=== PATIENT | female | born 1985 | race Caucasian/White ===

== ENCOUNTER → 2023-08-17 06:51 | Outpatient (REF) | payer BC, SELFPAY | LOC: RAD 06:51 | PROVIDERS: ATTENDING PHYSICIAN Internal Medicine | DX: G50.1 Atypical facial pain (principal) | CPT/HCPCS: 70450 ==

== ENCOUNTER 2023-08-25 18:45 | Inpatient (IN) | payer BC, SELFPAY ==
[2023-08-25] VITALS (15 sets, daily range): BP systolic 85–141; BP diastolic 49–109; BMI 18.6
[2023-08-25] MEDS: NSS 1000 IV ×3 (11:08→21:07)
[2023-08-25 11:12] LABS: % Basophils 0.2 % (0-2); % Eosinophils 0.1 % (0-6); % Immature Granulocytes 0.6 % (0-0.5); % Lymphocytes 8.7 % (20.5-51.1); % Monocytes 6.3 % (1.7-9.3); % Neutrophils 84.1 % (42.2-75.2); Absolute Immature Granulocytes 0.1 10^3/uL (0-0.05); Absolute Lymphocytes 1.5 10^3/uL (1.2-3.4); Absolute Monocytes 1.1 10^3/uL (0.1-0.6); Absolute Neutrophils 14.7 10^3/uL (1.4-6.5); Hematocrit 36.6 % (37.0-47.0); Hemoglobin 12.4 g/dL (12.0-16.0); Mean Corp Hgb Conc. 33.9 g/dL (33.0-37.0); Mean Corpuscular Hgb 29.7 pg (27.0-31.0); Mean Corpuscular Volume 87.8 fL (81.0-99.0); Mean Platelet Volume 9.5 fL (7.4-10.4); Nucleated Red Blood Cells % 0 %; Platelet Count 204 10^3/uL (130-400); Red Blood Cell Count 4.17 10^6/uL (4.20-5.40); White Blood Cell Count 17.5 10^3/uL (4.8-10.8)
[2023-08-25 11:22] LABS: ALT (SGPT) 15 U/L (0-35); AST (SGOT) 23 U/L (14-36); Albumin 4.5 g/dl (3.5-5.0); Alkaline Phosphatase 63 U/L (38-126); Blood Urea Nitrogen 12 mg/dl (7-17); Calcium 9.5 mg/dl (8.4-10.2); Carbon Dioxide 21 mmol/L (22-30); Chloride 102 mmol/L (98-107); Glucose 105 mg/dl (70-99); Potassium 3.8 mmol/L (3.5-5.1); Sodium 132 mmol/L (135-145); Total Bilirubin 0.6 mg/dl (0.2-1.3); Total Protein 7.4 g/dl (6.3-8.2); Urine Albumin Negative (Neg - Trace); Urine Bilirubin Negative (Negative); Urine Character Clear (Clear); Urine Color Yellow; Urine Glucose Negative (Negative); Urine Ketone Negative (Negative); Urine Leukocyte Trace (Negative); Urine Nitrite Negative (Negative); Urine Occult Blood Negative (Negative); Urine Specific Gravity 1.005 (<1.030); Urine Urobilinogen Negative (Neg - 1+); eGFR > 60.00
[2023-08-25 11:28] LABS: HCG, Urine Qualitative Screen Negative
[2023-08-25 12:00] LABS: Urine Mucus Few; Urine Squamous Cell 21-25 /LPF (Few)
[2023-08-25 12:01] LABS: Urine Amorphous Seen; Urine Bacteria Few (Negative); Urine Red Blood Cell 0-2 /HPF (0-2)
[2023-08-25] MEDS: ROCEPHIN 1000 MG IV (13:23)
[2023-08-25] MEDS: TORADOL 15 MG IV ×2 (13:33→18:14)
--- NOTE | 2023-08-25 13:39 | ED.GENMED ---
History of Present Illness
<Paolo Schuster Jr., PA-C - Last Filed: 08/25/23 18:10>
General
Chief Complaint: Back Pain
Source: patient
Exam Limitations: none
Time Seen by Provider: 08/25/23 10:33
Nursing documentation reviewed up to this point in time: agreed with
Travel History
Have you had any contact with someone who has COVID-19?: No
Do you have any symptoms of coronavirus? Fever > 100 degrees, chills, cough, shortness of breath, sore throat, loss of taste or smell, muscle aches, or headache?: No
History of Present Illness
History of Present Illness:
38-year-old female with recent diagnosis of UTI on Bactrim for the last 3 days presenting to the emergency department today with concerns of subjective fever and left-sided flank pain worsening over the past day. Denies chest pain shortness of
breath or vomiting. Ongoing suprapubic discomfort. Also has ongoing frequency urgency at dysuria.
Past History
<Paolo Schuster Jr., PA-C - Last Filed: 08/25/23 18:10>
Past History
ED Past Medical History: Other (Possible rheumatoid arthritis and fibromyalgia)
ED Past Surgical History: Other (Nose surgery, breast reduction)
Social History
Tobacco: Non-smoker
Personal:
Living: with family
Employment: Employed
Family History
Family History: Other (Mother has rheumatoid arthritis)
Review of Systems
<CLAUDETTE Chanel Jr. Last Filed: 08/25/23 18:10>
Review of Systems
Allergies reviewed?: Yes
All Other Systems: ROS reviewed and negative except as documented in HPI and ROS
Phy Exam
<CLAUDETTE Chanel Jr. Last Filed: 08/25/23 18:10>
Physical Exam
Physical Exam:
GENERAL: Alert , in no apparent distress
EYE: pupils equal and reactive
NECK: Supple, no significant adenopathy.
ENT: o/p clr, mmm.
CARDIAC: Regular rate and rhythm .
LUNGS: Clear breath sounds bilaterally, no acute respiratory distress, no wheezes/rales/rhonchi
ABDOMEN: Tenderness palpation to the suprapubic region as well as the left flank otherwise soft benign abdomen
NEUROLOGICAL: Alert and oriented, no focal neuro deficits
SKIN: Warm and dry, skin intact.
MUSCULOSKELETAL: No edema, well perfused.
PSYCH: Normal and appropriate interaction.
Course
<Paolo Schuster Jr., PA-C - Last Filed: 08/25/23 18:10>
Orders/Labs/Results
Orders:
Orders
08/25/23 09:28
Test Result ONCE
08/25/23 10:52
Complete Blood Count/With Diff Urgent
Comprehensive Metabolic Panel Urgent
, Urine Qualitative Screen [HCG, Urine Qualitative Screen] Urgent
Date Specimen was Collected: 08/25/23
Time Specimen was Collected: 09:28
Urinalysis Reflex To Culture Urgent
Date Specimen was Collected: 08/25/23
Time Specimen was Collected: 09:28
Urine Microscopic Reflex Cult Urgent
08/25/23 11:03
CT Abd/pel Without Iv Or Oral Urgent
Comment:
Reason For Exam: left flank pain
08/25/23 11:08
0.9% Sodium Chloride 1000 ml [Nss] 1,000 ml IV BOLUS
08/25/23 13:06
CefTRIAXone [Rocephin] 1,000 mg IV NOW STA
08/25/23 13:31
Ketorolac [Toradol] 15 mg .ROUTE .STK-MED ONE
08/25/23 13:32
Ketorolac [Toradol] 15 mg IV NOW STA
08/25/23 14:21
CT Abd/pel W Iv And Oral Contr Urgent
Comment:
Reason For Exam: abd pain back pain
Iohexol [Omnipaque] See Protocol PO NOW STA
08/25/23 14:27
Acetaminophen [Tylenol] 650 mg PO NOW STA
Morphine Sulfate 2 mg IV NOW STA
08/25/23 14:29
Morphine Sulfate 4 mg IV NOW STA
08/25/23 14:41
Influenza A+B Rapid Molecular Urgent
JESSICA Source: Nasal Swab
Specimen Description:
08/25/23 16:46
Lactic Acid Urgent
08/25/23 16:56
0.9% Sodium Chloride 1000 ml [Nss] 1,000 ml IV BOLUS
08/25/23 17:57
EKG [Electrocardiogram (*1)] Urgent
Reason for Study: Bradycardia / Tachycardia
EKG- Treatment ONCE
08/25/23 18:05
Gentamicin Sulfate [Gentamicin] 105 mg 0.9% Sodium Chloride [Nss] 50 ml IV NOW
Abnormal Lab Results
08/25/23 08/25/23
10:52 16:46
WBC 17.5 H 10^3/uL
(4.8-10.8)
RBC 4.17 L 10^6/uL
(4.20-5.40)
Hct 36.6 L %
(37.0-47.0)
Abs Immat Gran (auto) 0.1 H 10^3/uL
(0-0.05)
Absolute Neuts (auto) 14.7 H 10^3/uL
(1.4-6.5)
Absolute Monos (auto) 1.1 H 10^3/uL
(0.1-0.6)
Immature Gran % 0.6 H %
(0-0.5)
Neutrophils % 84.1 H %
(42.2-75.2)
Lymphocytes % 8.7 L %
(20.5-51.1)
Sodium 132 L mmol/L
(135-145)
Carbon Dioxide 21 L mmol/L
(22-30)
Glucose 105 H mg/dl
(70-99)
Lactic Acid 0.6 L mmol/L
(0.7-2.0)
Leukocyte Esterase Rfl Trace A
(Negative)
Urine Bacteria (Reflex) Few A
(Negative)
08/25/23 10:52
08/25/23 10:52
Vital Signs
Initial and Last Documented VS:
Initial Vital Signs
Temp Pulse Resp BP Pulse Ox
98.8 F 113 18 105/66 100
08/25/23 09:24 08/25/23 09:24 08/25/23 09:24 08/25/23 09:24 08/25/23 09:24
Last Documented Vital Signs
Temp Pulse Resp BP Pulse Ox
100.8 F H 48 24 141/109 94
08/25/23 17:46 08/25/23 17:46 08/25/23 17:46 08/25/23 17:46 08/25/23 17:46
Kellenlt;Juan Carlos Ramirez, - Last Filed: 08/25/23 14:49>
Orders/Labs/Results
Orders:
Orders
08/25/23 09:28
Test Result ONCE
08/25/23 10:52
Complete Blood Count/With Diff Urgent
Comprehensive Metabolic Panel Urgent
, Urine Qualitative Screen [HCG, Urine Qualitative Screen] Urgent
Date Specimen was Collected: 08/25/23
Time Specimen was Collected: 09:28
Urinalysis Reflex To Culture Urgent
Date Specimen was Collected: 08/25/23
Time Specimen was Collected: 09:28
Urine Microscopic Reflex Cult Urgent
08/25/23 11:03
CT Abd/pel Without Iv Or Oral Urgent
Comment:
Reason For Exam: left flank pain
08/25/23 11:08
0.9% Sodium Chloride 1000 ml [Nss] 1,000 ml IV BOLUS
08/25/23 13:06
CefTRIAXone [Rocephin] 1,000 mg IV NOW STA
08/25/23 13:31
Ketorolac [Toradol] 15 mg .ROUTE .STK-MED ONE
08/25/23 13:32
Ketorolac [Toradol] 15 mg IV NOW STA
08/25/23 14:21
CT Abd/pel W Iv And Oral Contr Urgent
Comment:
Reason For Exam: abd pain back pain
Iohexol [Omnipaque] See Protocol PO NOW STA
08/25/23 14:27
Acetaminophen [Tylenol] 650 mg PO NOW STA
Morphine Sulfate 2 mg IV NOW STA
08/25/23 14:29
Morphine Sulfate 4 mg IV NOW STA
08/25/23 14:41
Influenza A+B Rapid Molecular Urgent
JESSICA Source: Nasal Swab
Specimen Description:
08/25/23 16:46
Lactic Acid Urgent
08/25/23 16:56
0.9% Sodium Chloride 1000 ml [Nss] 1,000 ml IV BOLUS
08/25/23 17:57
EKG [Electrocardiogram (*1)] Urgent
Reason for Study: Bradycardia / Tachycardia
EKG- Treatment ONCE
08/25/23 18:05
Gentamicin Sulfate [Gentamicin] 105 mg 0.9% Sodium Chloride [Nss] 50 ml IV NOW
Abnormal Lab Results
08/25/23 08/25/23
10:52 16:46
WBC 17.5 H 10^3/uL
(4.8-10.8)
RBC 4.17 L 10^6/uL
(4.20-5.40)
Hct 36.6 L %
(37.0-47.0)
Abs Immat Gran (auto) 0.1 H 10^3/uL
(0-0.05)
Absolute Neuts (auto) 14.7 H 10^3/uL
(1.4-6.5)
Absolute Monos (auto) 1.1 H 10^3/uL
(0.1-0.6)
Immature Gran % 0.6 H %
(0-0.5)
Neutrophils % 84.1 H %
(42.2-75.2)
Lymphocytes % 8.7 L %
(20.5-51.1)
Sodium 132 L mmol/L
(135-145)
Carbon Dioxide 21 L mmol/L
(22-30)
Glucose 105 H mg/dl
(70-99)
Lactic Acid 0.6 L mmol/L
(0.7-2.0)
Leukocyte Esterase Rfl Trace A
(Negative)
Urine Bacteria (Reflex) Few A
(Negative)
08/25/23 10:52
08/25/23 10:52
Vital Signs
Initial and Last Documented VS:
Initial Vital Signs
Temp Pulse Resp BP Pulse Ox
98.8 F 113 18 105/66 100
08/25/23 09:24 08/25/23 09:24 08/25/23 09:24 08/25/23 09:24 08/25/23 09:24
Last Documented Vital Signs
Temp Pulse Resp BP Pulse Ox
100.8 F H 48 24 141/109 94
08/25/23 17:46 08/25/23 17:46 08/25/23 17:46 08/25/23 17:46 08/25/23 17:46
<Paolo Schuster Jr., PA-C - Last Filed: 08/25/23 18:10>
MDM/Problems Addressed
MDM/Problems Addressed:
38-year-old female presenting to the emergency department today with concerns of potentially worsening UTI recently diagnosed with a UTI on for 3 days now left flank pain. Upon arrival afebrile but tachycardic was given fluids with improving heart
rate however did develop a fever while here. White count was found to be 17.[address] scan without emergent findings however the patient had ongoing tachycardia chills. Fever worsened despite receiving Toradol and Tylenol.
Considering the CT scan with contrast was then ordered which did show pyelonephritis. Plan to admit for further IV antibiotics for pyelonephritis.
<Paolo Schuster Jr., PA-C - Last Filed: 08/25/23 18:10>
*Critical Care Note
Total Time (30-74mins, 75-104mins- exclusive of procedures): Not Applicable
ED Attending Note
<Paolo Schuster Jr., PA-C - Last Filed: 08/25/23 18:10>
-
Portions of this chart may have been created with voice recognition software.� Occasional wrong word or��sound alike� substitutions may have occurred due to the inherent limitations of voice recognition software.
<Juan Carlos Ramirez DO - Last Filed: 08/25/23 14:49>
ED Attending Note
Patient seen and examined by attending physician: Yes
I performed the substantive portion of visit, reviewed & personally made and approve the management plan that is documented in note by myself or ODALIS.: Yes
ED Attending Note:
I agree with Ed's note,
Patient presents complaining of flank pain and abdominal pain. She has had a fever. Symptoms began 3 or 4 days ago. She was started on an antibiotic but has not felt any better.
General: Awake, Alert, Oriented X3. No acute distress, very thin
Vitals: Febrile
Head: Atraumatic
Eyes: Pupils equal, EOMI
Throat: Airway intact, no exudates
Neck: Trachea midline
Lungs: Clear and equal b/l
Heart: Regular rate, no murmurs
Abd: Soft, tender to palpation lower abdomen, No pulsatile mass
Back: Left CVA tenderness to percussion
Neuro: Nonfocal
Skin: Warm, dry, no rash
Extremities: pulses equal b/l, no edema
Initial workup shows white count of 17.5. Urinalysis is essentially negative. There is a large number of squamous epithelial cells making the quality of the specimen suspect. CT was performed without IV and p.o. contrast looking primarily for
kidney stone. There is no obvious stone and certainly no hydro noted. Patient is very very thin with low intra-abdominal fat so radiologist notes it is difficult to make any conclusions as far as other intra-abdominal pathology. That the patient
is on antibiotics and it is possible she has a partially treated UTI I would think her symptoms would be improving and they are not. Given the amount of abdominal discomfort she has a concern there could be an intra-abdominal process that is not
evident on the noncontrast CAT scan. First we will check a flu test if this is negative we will start the process for repeat CAT scan with IV and oral contrast. Given her use of Humira she may have a component of immunosuppression. Patient's
also notes she has been taking Mounjaro no due to a prediabetic state. Patient is extremely thin and normal coaches not taking this for weight issues. I am not familiar with using Mounjaro now in a prediabetic state.
Discharge Plan
Departure
Patient Disposition: Admit
Date of Disposition: 08/25/23
Time of Disposition: 18:09
Admit to: Med/Surg
Admit to doctor: Soren
Presentation/result/management discussed w/ accepting MD/DO: Hospitalist
Condition: Good
Covid-19: Not Applicable
Discharge Problem:
Pyelonephritis
Prescriptions:
No Action
loratadine 10 MG tablet
10 mg PO DAILY
citalopram 20 MG tablet
20 mg PO DAILY
acetaminophen 325 MG tablet
650 mg PO Q4HPRN PRN (Reason: mild pain) 0RF
ibuprofen 600 MG tablet
600 mg PO Q4HPRN PRN (Reason: moderate pain/cramps) 0RF
Referrals:
Marlene Sanchez, [Family Provider] -
Interventions
Interventions:
*Risk Screen - Suicide Last Done: 08/25/23 11:05
*General Assessment Last Done: 08/25/23 11:05
*Neglect/Abuse Screening Last Done: 08/25/23 11:05
*ED COVID-19 Vaccine History Last Done: 08/25/23 14:18
ED-Female Genitourinary Assessment Last Done: 08/25/23 11:05
ED-Musculoskeletal Assessment Last Done: 08/25/23 11:05
Discharge Date and Time
Print Language: BULGARIAN
[2023-08-25] MEDS: TYLENOL 650 MG PO ×2 (14:36→20:36)
[2023-08-25] MEDS: MORPHINE SULFATE 4 MG IV (14:36)
[2023-08-25] MEDS: OMNIPAQUE 50 ML PO (14:37)
[2023-08-25 17:11] LABS: Lactic Acid 0.6 mmol/L (0.7-2.0)
--- NOTE | 2023-08-25 18:31 | HPS.HSE ---
Family Physician
-
Family Physician: Marlene Sanchez
Chief Complaint
-
Fever, chills, left-sided flank pain
History of Present Illness
38-year-old female diagnosed with urinary tract infection 3 days ago and started Bactrim on Tuesday. Had a long drive back home from [place] and was trying to avoid stopping and had to keep her urine held which may have triggered her UTI.
Has been compliant with Bactrim for the past few days but symptoms of flank pain and chills worsened and she presented to the emergency room for evaluation today.
Denies frequent UTIs. Denies history of pyelonephritis.
Medical History
Past Medical History
Past Medical History: Reports Other
Additional Past Medical History:
Rheumatoid arthritis
Fibromyalgia
Past Surgical History: Reports Other
Additional Past Surgical History:
Nose surgery
Breast reduction
Social History
Tobacco: Non-smoker
Alcohol: None
Drug: None
Personal:
Living: With Family
Family History
Family History: Not pertinent
Allergies / Home Medications
Allergies reflects when Allergies were last updated in [facility].
Home Medications with original date entered in [facility]
Allergy/Medication List:
Allergies
Allergy/AdvReac Type Severity Reaction Status Date / Time
amoxicillin [From Augmentin] Allergy Mild Rash Verified 08/25/23 09:23
clavulanic acid Allergy Mild Rash Verified 08/25/23 09:23
[From Augmentin]
cefuroxime [From Ceftin] Allergy Unknown Verified 08/25/23 09:23
tramadol Allergy facial Verified 08/25/23 09:23
numb and
swelling
Home Medications
loratadine 10 mg tablet 10 mg PO DAILY Allergies 10/18/17
adalimumab 40 mg/0.4 mL subcutaneous pen kit (Humira(CF) Pen) 40 mg SC Q2W 08/25/23
citalopram 40 mg tablet 40 mg PO HS 08/25/23
gabapentin 300 mg capsule 300 mg PO TID PRN nerve pain 08/25/23
hydroxychloroquine 200 mg tablet 200 mg PO BID 08/25/23
lidocaine-prilocaine 2.5 %-2.5 % topical cream 1 applic topical QID PRN tmj pain 08/25/23
therapeutic multivitamin 1 tab PO DAILY 08/25/23
tirzepatide 2.5 mg/0.5 mL subcutaneous pen injector (Mounjaro) 2.5 mg SC WE 08/25/23
Review of Systems
-
History Source: Patient
A 12 point ROS was completed and negative except as noted: Yes
Physical Exam
Vital Signs
Vital Signs
Temp Pulse Resp BP Pulse Ox
100.8 F H 48 24 141/109 94
08/25/23 17:46 08/25/23 17:46 08/25/23 17:46 08/25/23 17:46 08/25/23 17:46
Physical Exam
General: Well Developed, Well Nourished, Appears in Distress and Chills
HEENT: NormoCephalic, Anicteric and Moist mucous membranes
Respiratory: Clear
Cardiac: S1/S2 and Regular Rhythm
Breast: Deferred by me
GI: Soft, Non Tender and Non Distended
Genito-urinary: Costovertebral angle tend (Left-sided)
Musculoskeletal: No Clubbing, No Cyanosis and No Edema
Skin: Warm and Dry
Neuro: AO x 3
Hematologic/Lymphatic: No Lymphadenopathy
Psych: Calm
Laboratory Results
-
08/25/23 10:52
08/25/23 10:52
Laboratory Results
Lactic Acid 0.6 mmol/L (0.7-2.0) L 08/25/23 16:46
Total Bilirubin 0.6 mg/dl (0.2-1.3) 08/25/23 10:52
AST 23 U/L (14-36) 08/25/23 10:52
ALT 15 U/L (0-35) 08/25/23 10:52
Alkaline Phosphatase 63 U/L (38-126) 08/25/23 10:52
Impression/Plan
-
Septic shock due to left-sided pyelonephritis -Transient hypotension resolved with IV fluids. Failure of outpatient antibiotics. Immunosuppressed, on Humira and hydroxychloroquine for rheumatoid arthritis. Admit to IMU. Continue IV fluids.
Broad-spectrum antibiotics. I asked the emergency room to send cultures. CT abdomen pelvis results noted. On contrast was administered, no renal stones were noted.
Lactic acid normal.
Hyponatremia -due to sepsis, acute illness. Citalopram can also contribute. Reassess after normal saline overnight.
Rheumatoid arthritis -stable.
History of MRSA skin infections
Fibromyalgia
Full code
[2023-08-25] MEDS: GENTAMICIN 50 IV (19:03)
[2023-08-25] MEDS: PLAQUENIL PO (21:08)
[2023-08-25] MEDS: CELEXA PO (21:08)
[2023-08-25] MEDS: COMPAZINE 10 MG IV (21:09)
[2023-08-25] MEDS: MAXIPIME 2000 MG IV (21:09)
[2023-08-25] MEDS: STERILE WATER FOR INJECTION 10 ML IV (21:10)
--- NOTE | 2023-08-25 22:19 | W.PN.UPDATE ---
Update Note
Progress Note Update
Nursing reported patient with sustained tachycardia, febrile and patient stated to nurse, 'I feel I am going to .' At bedside to assess and patient is in bed and presents anxious, voices that she feels like her body is 'on fire. Burning from the
inside out.'
Plan:
- EKG - prolonged QTc 599 was 413 at admission
- Hold Compazine, repeat EKG in morning to monitor QTc
- Cooling blanket - acetaminophen was ineffective for fever
- STAT - CBC w/diff, BMP, Lactic (no significant findings)
- STAT Blood Cx - in attendings note mentions 'ED to draw and send,' none drawn
[2023-08-25 22:46] LABS: Hematocrit 29.2 % (37.0-47.0); Mean Corp Hgb Conc. 34.2 g/dL (33.0-37.0); Mean Corpuscular Hgb 29.6 pg (27.0-31.0); Mean Corpuscular Volume 86.4 fL (81.0-99.0); Red Blood Cell Count 3.38 10^6/uL (4.20-5.40); Red Cell Dist. Width 13.9 % (11.5-14.5); White Blood Cell Count 10.5 10^3/uL (4.8-10.8)
[2023-08-25 22:58] LABS: Blood Urea Nitrogen 8 mg/dl (7-17); Calcium 8.2 mg/dl (8.4-10.2); Carbon Dioxide 18 mmol/L (22-30); Chloride 104 mmol/L (98-107); Estimated Creatinine Clearance 75 ml/min; Glucose 103 mg/dl (70-99); Potassium 3.7 mmol/L (3.5-5.1); Sodium 131 mmol/L (135-145); eGFR > 60.00
[2023-08-25 22:59] LABS: Mean Platelet Volume 9.9 fL (7.4-10.4); Platelet Count 131 10^3/uL (130-400)
--- NOTE | 2023-08-25 23:00 | PTCARENOTE ---
Pt received from ED.Pt c/o pain and nausea dose of ordered Toradol and Compazine administered, ED EKG reviewed for prolonged QTc. Pt with temp of 102.9 with chills, tachycardia from 140-160's, muscles aches, and overall restlessness. PT given oral
dose of Tylenol. Pts temperature and symptoms persist. BASE CLOTH INSPECTOR notified. EKG ordered and preformed. Porlonged QTc noted, BASE CLOTH INSPECTOR notified, AM EKG order placed Compazine order placed on hold, labs ordered .BASE CLOTH INSPECTOR placed order for cooling blanket with goal
temp of 100.4.
[2023-08-26] VITALS (28 sets, daily range): BP systolic 75–114; BP diastolic 56–83; BMI 18.7
[2023-08-26] MEDS: TORADOL 30 MG IV ×4 (00:07→19:56)
[2023-08-26] MEDS: CELEXA PO (01:52)
[2023-08-26] MEDS: PLAQUENIL PO (01:53)
[2023-08-26] MEDS: TYLENOL 650 MG PO ×3 (02:48→16:15)
--- NOTE | 2023-08-26 04:41 | PTCARENOTE ---
Pt placed back on cooling blanket for fever of 101.5. Pt assessed being able to sleep. Pt with HR of 130-140's. Pt receiving ordered fluids @ 120/ml/hr. Pt AAO, making needs known. Pt voiding frequently throughout the night. Pt currently on her
menses, Pt provided with pads. Call de souza in reach, see nursing shift report for full head to toe.
[2023-08-26] MEDS: MORPHINE SULFATE 4 MG IV (05:52)
[2023-08-26 06:01] LABS: % Basophils 0.2 % (0-2); % Immature Granulocytes 0.7 % (0-0.5); % Lymphocytes 7.4 % (20.5-51.1); % Monocytes 7.3 % (1.7-9.3); % Neutrophils 84.4 % (42.2-75.2); Absolute Immature Granulocytes 0.1 10^3/uL (0-0.05); Absolute Lymphocytes 0.8 10^3/uL (1.2-3.4); Absolute Monocytes 0.8 10^3/uL (0.1-0.6); Absolute Neutrophils 8.7 10^3/uL (1.4-6.5); Hemoglobin 9.8 g/dL (12.0-16.0); Mean Corp Hgb Conc. 33.8 g/dL (33.0-37.0); Mean Corpuscular Hgb 29.9 pg (27.0-31.0); Mean Corpuscular Volume 88.4 fL (81.0-99.0); Mean Platelet Volume 10.2 fL (7.4-10.4); Nucleated Red Blood Cells % 0 %; Platelet Count 132 10^3/uL (130-400); Red Blood Cell Count 3.28 10^6/uL (4.20-5.40); White Blood Cell Count 10.4 10^3/uL (4.8-10.8)
[2023-08-26 06:31] LABS: Blood Urea Nitrogen 7 mg/dl (7-17); Calcium 8.1 mg/dl (8.4-10.2); Carbon Dioxide 18 mmol/L (22-30); Chloride 109 mmol/L (98-107); Estimated Creatinine Clearance 87 ml/min; Glucose 106 mg/dl (70-99); Sodium 133 mmol/L (135-145); eGFR > 60.00
[2023-08-26] MEDS: NSS 1000 IV ×3 (07:06→16:11)
[2023-08-26] MEDS: STERILE WATER FOR INJECTION 10 ML IV ×2 (07:34→19:59)
[2023-08-26] MEDS: CLARITIN 10 MG PO (07:35)
[2023-08-26] MEDS: PLAQUENIL 200 MG PO ×2 (07:35→19:54)
[2023-08-26] MEDS: THERAGRAN 1 TABLET PO (07:35)
[2023-08-26] MEDS: MAXIPIME 2000 MG IV ×2 (07:35→19:58)
[2023-08-26 08:01] LABS: Magnesium 1.7 mg/dl (1.6-2.3)
--- NOTE | 2023-08-26 09:11 | W.PN.HOSP.TC ---
Today's Communication/Plan
-
Continue IV antibiotics
Continue supportive care
Assessment / Plan
Assessment / Plan
Gen-AAOx3, NAD
HEENT-NC, AT, anicteric, clear oral mm
Neck-supple
CV-reg, no M, +S1/S2
Lungs-clear B/L
Abd-soft, NT, ND
Ext-no edema
Musculoskeletal-no cyanosis, clubbing, left flank tenderness
Skin-warm and dry
Neuro-grossly non-focal
Psych-calm, cooperative
Septic shock due to left-sided pyelonephritis -blood pressure improved overall. Did not require vasopressors. Currently in IMU. Unclear why cultures were never sent emergency room, despite my requests with the ER staff.
Continue antibiotics. White blood cell count improved. Clinically looks nontoxic and much better than yesterday. At this point, cultures may or may not be helpful. Fevers noted. May take a few more days for fevers to resolve. CT abdomen pelvis
did not show renal abscess.
Will resend urinalysis and urine culture as noted orange-colored urine.
Discontinue further Compazine given potential jitteriness as a side effect. Use Zofran as needed. QT interval improved.
Hyponatremia -due to sepsis, acute illness. Citalopram can also contribute. Sodium 133 today. Mild fluid restriction.
Rheumatoid arthritis -stable.
Acute anemia -normocytic. Hemoglobin was normal on admission. Suspect hemodilution due to IV fluid administration. Doubt bleeding. Monitor for now.
History of MRSA skin infections
Fibromyalgia
Full code
Anticipated Discharge: > 48 hours
Subjective/Interval History
-
Date of Service: August 26, 2023
Patient seen and examined. Looks and feels better. Still with left flank pain but less than yesterday. No nausea currently.
Objective Data
-
Labs:
Laboratory Results
08/25/23 08/26/23
22:32 05:35
WBC 10.5 10.4
Hgb 10.0 L 9.8 L
Hct 29.2 L 29.0 L
Plt Count 131 D 132
Sodium 131 L 133 L
Potassium 3.7 4.0
Chloride 104 109 H
Carbon Dioxide 18 L 18 L
BUN 8 7
Creatinine 0.8 0.7
Glucose 103 H 106 H
Calcium 8.2 L 8.1 L
Vital Signs:
Vital Signs
Temp Pulse Resp BP Pulse Ox
100.4 F H 105 23 98/67 98
08/26/23 09:00 08/26/23 06:00 08/26/23 06:00 08/26/23 06:00 08/26/23 00:44
I&O
08/25/23 08/26/23 08/27/23
06:59 06:59 06:59
Intake Total 480 / 480 1200 / 1200
Balance 480 / 480 1200 / 1200
Review of Systems
-
History Source: Patient
All other systems: Reviewed and negative
[2023-08-26] MEDS: ZOFRAN 4 MG IV ×2 (10:15→19:55)
--- NOTE | 2023-08-26 10:17 | CM ---
CM following re: discharge planning.
Reviewed pt's chart, m,et with pt. pt's spouse and pt's mother at bedside.
Pt is a 38 year old female, admitted with primary dx of Septic shock due to left-sided pyelonephritis.
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
PCP: Marlene Sanchez
Pharmacy: [facility]
D/C plan: home with anticipated no needs. to transport at discharge.
CM will follow with discharge plan updates as hospitalization progresses
[2023-08-26 12:34] LABS: Urine Albumin Negative (Neg - Trace); Urine Bilirubin Negative (Negative); Urine Character Clear (Clear); Urine Color Yellow; Urine Glucose Negative (Negative); Urine Ketone 1+ (Negative); Urine Leukocyte Trace (Negative); Urine Nitrite Negative (Negative); Urine Occult Blood 4+ (Negative); Urine Urobilinogen Negative (Neg - 1+)
[2023-08-26] MEDS: NSS 500 IV (12:39)
[2023-08-26] MEDS: ProAmatine 5 MG PO (12:39)
[2023-08-26 15:03] LABS: Urine Mucus Few; Urine Squamous Cell 26-30 /LPF (Few)
[2023-08-26 15:04] LABS: Urine Amorphous Seen
[2023-08-26 15:05] LABS: Urine Red Blood Cell 30-40 /HPF (0-2)
[2023-08-26] MEDS: LOVENOX 30 MG SC (17:20)
--- NOTE | 2023-08-26 17:44 | PTCARENOTE ---
Rec'd pt this AM. Pt with fevers throughout most of the day. T Max 102.9 in AM. Remains on cooling blanket. Pain relieved with Toredol and nausea improved with Zofran. Rigors present when febrile. Pt complained of pain in feet from Raunauds when on
cooling blanket. Socks placed on feet and blanket over bottom of cooling blanket as well. IV fluids infusing as ordered. ST on tele. Pt with some hypotension. 500ml bolus NSS given plus midodrine PRN ordered with good effect. Pt encouraged to drink
fluids as well. family at bedside.
[2023-08-26] MEDS: CELEXA 40 MG PO (19:54)
--- NOTE | 2023-08-26 20:00 | PTCARENOTE ---
Addendum entered by Krys Rivera RN 08/26/23 21:06:
Pt with nausea. Pt reached zofran recently previous to the current nausea. Pts temp declining, currently 100.8. Pt requests Tums. EDUCATIONAL ASSISTANT notified.
Original Note:
Pt received from previous shift. Pts fever returns, of 101.9. Pt placed back on cooling blanket. Pt given ordered toradol, zofran. Pt remains AAO, exhibits slight anxiety. HR remains in the 100-110 range.
[2023-08-26] MEDS: TUMS 1 TABLET PO (21:26)
[2023-08-27] VITALS (19 sets, daily range): BP systolic 92–117; BP diastolic 63–97
[2023-08-27] MEDS: TYLENOL 650 MG PO ×2 (00:23→08:36)
[2023-08-27] MEDS: ZOFRAN 4 MG IV (02:03)
[2023-08-27] MEDS: TORADOL 30 MG IV ×3 (02:05→20:52)
[2023-08-27] MEDS: THERAGRAN 1 TABLET PO (08:38)
[2023-08-27] MEDS: STERILE WATER FOR INJECTION 10 ML IV ×2 (08:38→20:36)
[2023-08-27] MEDS: MAXIPIME 2000 MG IV ×2 (08:38→20:35)
[2023-08-27] MEDS: PLAQUENIL 200 MG PO ×2 (08:38→20:35)
[2023-08-27] MEDS: CLARITIN 10 MG PO (08:38)
--- NOTE | 2023-08-27 08:57 | W.PN.HOSP.TC ---
Today's Communication/Plan
-
Bowel regimen
Ambulate
Continue antibiotics
Assessment / Plan
Assessment / Plan
Gen-AAOx3, NAD
HEENT-NC, AT, anicteric, clear oral mm
Neck-supple
CV-reg, no M, +S1/S2
Lungs-clear B/L
Abd-soft, NT, ND
Ext-no edema
Musculoskeletal-no cyanosis, clubbing, left flank tenderness
Skin-warm and dry
Neuro-grossly non-focal
Psych-calm, cooperative
Septic shock due to left-sided pyelonephritis -blood pressure improved overall. Did not require vasopressors. Currently in IMU. Unclear why cultures were never sent emergency room, despite my requests with the ER staff.
Continue antibiotics. White blood cell count improved. Clinically looks nontoxic and much better than yesterday. At this point, cultures may or may not be helpful. Fevers noted. May take a few more days for fevers to resolve. CT abdomen pelvis
did not show renal abscess.
Unfortunately no good culture data so far. She received Bactrim prior to admission prescribed by PCP, culture not sent at that time either.
Blood cultures negative so far. Urine culture pending.
Constipation -order bowel regimen. Encourage ambulation.
Hyponatremia -due to sepsis, acute illness. Citalopram can also contribute. Sodium 133 today. Mild fluid restriction.
Rheumatoid arthritis -stable.
Acute anemia -normocytic. Hemoglobin was normal on admission. Suspect hemodilution due to IV fluid administration. Doubt bleeding. Monitor for now.
History of MRSA skin infections
Fibromyalgia
Full code
Anticipated Discharge: 24 - 48 hours
Subjective/Interval History
-
Date of Service: August 27, 2023
Patient seen and examined. Complaining of constipation, stomach pain.
Objective Data
-
Labs:
Laboratory Results
08/27/23
06:00
WBC Pending
Hgb Pending
Hct Pending
Plt Count Pending
Sodium Pending
Potassium Pending
Chloride Pending
Carbon Dioxide Pending
BUN Pending
Creatinine Pending
Glucose Pending
Calcium Pending
Vital Signs:
Vital Signs
Temp Pulse Resp BP Pulse Ox
99.8 F 85 17 105/77 100
08/27/23 03:37 08/27/23 06:00 08/27/23 06:00 08/27/23 06:00 08/26/23 20:00
I&O
08/26/23 08/27/23 08/28/23
06:59 06:59 06:59
Intake Total 480 / 480 2160 / 2160
Output Total 125 / 125
Balance 480 / 480 2034 / 2034
Review of Systems
-
History Source: Patient
All other systems: Reviewed and negative
[2023-08-27] MEDS: DULCOLAX 10 MG PO (10:05)
[2023-08-27] MEDS: MIRALAX 17 GRAMS PO (10:06)
[2023-08-27] MEDS: COLACE 100 MG PO ×2 (10:06→20:36)
[2023-08-27] MEDS: NSS 1000 IV (10:20)
[2023-08-27 13:34] LABS: % Basophils 0.3 % (0-2); % Eosinophils 0.3 % (0-6); % Immature Granulocytes 0.3 % (0-0.5); % Lymphocytes 21.1 % (20.5-51.1); % Monocytes 13.4 % (1.7-9.3); % Neutrophils 64.6 % (42.2-75.2); Absolute Lymphocytes 1.3 10^3/uL (1.2-3.4); Absolute Monocytes 0.8 10^3/uL (0.1-0.6); Hematocrit 29.4 % (37.0-47.0); Hemoglobin 10.1 g/dL (12.0-16.0); Mean Corp Hgb Conc. 34.4 g/dL (33.0-37.0); Mean Corpuscular Hgb 29.5 pg (27.0-31.0); Mean Platelet Volume 10.2 fL (7.4-10.4); Nucleated Red Blood Cells % 0 %; Platelet Count 160 10^3/uL (130-400); Red Blood Cell Count 3.42 10^6/uL (4.20-5.40); Red Cell Dist. Width 14.1 % (11.5-14.5); White Blood Cell Count 6.1 10^3/uL (4.8-10.8)
[2023-08-27 13:53] LABS: Blood Urea Nitrogen 7 mg/dl (7-17); Carbon Dioxide 21 mmol/L (22-30); Chloride 107 mmol/L (98-107); Estimated Creatinine Clearance 101 ml/min; Glucose 105 mg/dl (70-99); Potassium 3.8 mmol/L (3.5-5.1); Sodium 135 mmol/L (135-145); eGFR > 60.00
[2023-08-27] MEDS: LOVENOX 30 MG SC (16:54)
[2023-08-27] MEDS: MORPHINE SULFATE 4 MG IV (17:10)
--- NOTE | 2023-08-27 20:31 | RESPNOTE ---
PT is ordered for BIPAP 04/26 for HS use and PRN use. PT has significant breakdown on the bridge of the nose and unable to use any mask other than an [id number] mask. 2 different [id number] masks were tested on the PT and she said both were
blowing in her eyes, despite many adjustments. PT was asked whether she would like to wear what we have available, or just wear the 4 L nasal cannula, she opted for just the nasal O2. BIPAP remains on [facility]BY at the and says that she hopes to have
a family member bring in her home mask for use with our BIPAP.
[2023-08-27] MEDS: CELEXA 40 MG PO (20:38)
--- NOTE | 2023-08-27 21:51 | PTCARENOTE ---
Received pt at start of shift, aaox3, pleasant. Still having sharp pain in upper abdomen, toradol given. Remains on RA, NSR. at bedside. Plan of care explained, no questions from pt or . NO fevers so far. IVF finished, encouraged to
keep hydrating & ambulating. pt stated she had 3 BM's today. No other issues at this time. Will monitor.
[2023-08-28] VITALS: BP 103/74
[2023-08-28 02:00] VITALS: BP 97/67
[2023-08-28 04:00] VITALS: BP 107/85
[2023-08-28] MEDS: TORADOL 30 MG IV (05:54)
[2023-08-28 06:24] VITALS: BP 107/73
[2023-08-28 08:00] VITALS: BP 110/77
[2023-08-28 08:01] LABS: % Basophils 0.4 % (0-2); % Immature Granulocytes 0.4 % (0-0.5); % Lymphocytes 28.3 % (20.5-51.1); % Neutrophils 57.9 % (42.2-75.2); Absolute Eosinophils 0.1 10^3/uL (0-0.7); Absolute Lymphocytes 1.5 10^3/uL (1.2-3.4); Absolute Monocytes 0.6 10^3/uL (0.1-0.6); Hematocrit 27.7 % (37.0-47.0); Hemoglobin 9.1 g/dL (12.0-16.0); Mean Corp Hgb Conc. 32.9 g/dL (33.0-37.0); Mean Corpuscular Volume 88.2 fL (81.0-99.0); Mean Platelet Volume 10.3 fL (7.4-10.4); Nucleated Red Blood Cells % 0 %; Platelet Count 159 10^3/uL (130-400); Red Blood Cell Count 3.14 10^6/uL (4.20-5.40); Red Cell Dist. Width 14.4 % (11.5-14.5); White Blood Cell Count 5.2 10^3/uL (4.8-10.8)
--- NOTE | 2023-08-28 08:04 | W.PN.HOSP.TC ---
Today's Communication/Plan
-
Discharge
Assessment / Plan
Assessment / Plan
Gen-AAOx3, NAD
HEENT-NC, AT, anicteric, clear oral mm
Neck-supple
CV-reg, no M, +S1/S2
Lungs-clear B/L
Abd-soft, NT, ND
Ext-no edema
Musculoskeletal-no cyanosis, clubbing, flank tenderness resolved.
Skin-warm and dry
Neuro-grossly non-focal
Psych-calm, cooperative
Septic shock due to left-sided pyelonephritis -blood pressure improved overall. Did not require vasopressors. Currently in IMU. Unclear why cultures were never sent emergency room, despite my requests with the ER staff.
Continue antibiotics. White blood cell count improved. Clinically looks nontoxic and much better than yesterday. At this point, cultures may or may not be helpful. Fevers noted. May take a few more days for fevers to resolve. CT abdomen pelvis
did not show renal abscess.
Unfortunately no good culture data so far. She received Bactrim prior to admission prescribed by PCP, culture not sent at that time either.
Blood cultures and urine cultures negative.
Convert to oral antibiotics and discharge today. Follow-up closely with PCP this week. Instructed patient to return to the emergency room with any worsening symptoms or ongoing fevers.
Epigastric discomfort -possible gastritis, versus constipation. Pain improved today compared to yesterday. Continue bowel regimen. Protonix to be started.
Constipation -now moving bowels.
Hyponatremia -due to sepsis, acute illness. Sodium improved.
Rheumatoid arthritis -stable.
Acute anemia -normocytic. Hemoglobin was normal on admission. Suspect hemodilution due to IV fluid administration. Doubt bleeding. Monitor for now.
History of MRSA skin infections
Fibromyalgia
Full code
Dispo -stable for discharge home today. Follow-up with PCP this week.
35 minutes spent in discharge process.
Anticipated Discharge: Today
Subjective/Interval History
-
Date of Service: August 28, 2023
Patient seen and examined. Flank pain resolved. Epigastric pain improving but not completely resolved. Moving bowels.
Objective Data
-
Labs:
Laboratory Results
08/28/23
07:44
WBC Pending
Hgb Pending
Hct Pending
Plt Count Pending
Vital Signs:
Vital Signs
Temp Pulse Resp BP Pulse Ox
99.1 F 73 23 107/73 97
08/28/23 03:45 08/28/23 06:24 08/28/23 06:24 08/28/23 06:24 08/27/23 21:11
I&O
08/27/23 08/28/23 08/29/23
06:59 06:59 06:59
Intake Total 2160 / 2160 1200 / 1200
Output Total 125 / 125
Balance 2034 / 2034 1200 / 1200
Review of Systems
-
History Source: Patient
All other systems: Reviewed and negative
--- NOTE | 2023-08-28 08:33 | W.DS.TRANS ---
DC Summary - Game Operator
-
Discharge Instructions:
Discharge Diagnosis/Procedures Left sided pyelonephritis, sepsis
Diet Regular
Activity As tolerated
Driving Restrictions As prior to admission
Bathing Restrictions None
Instructions:
Stand-Alone Forms:
Changes to Home Medications: No
Discharge Medications:
DC Medications w/original date entered in [employer]
loratadine 10 mg tablet 10 mg PO DAILY Allergies 10/18/17
adalimumab 40 mg/0.4 mL subcutaneous pen kit (Humira(CF) Pen) 40 mg SC Q2W Antirheumatic, Disease Modifying 08/25/23
citalopram 40 mg tablet 40 mg PO HS Mental Health/Anxiety 08/25/23
gabapentin 300 mg capsule 300 mg PO TID PRN nerve pain 08/25/23
hydroxychloroquine 200 mg tablet 200 mg PO BID RA 08/25/23
lidocaine-prilocaine 2.5 %-2.5 % topical cream 1 applic topical QID PRN tmj pain 08/25/23
therapeutic multivitamin 1 tab PO DAILY Supplement 08/25/23
tirzepatide 2.5 mg/0.5 mL subcutaneous pen injector (Mounjaro) 2.5 mg SC WE Diabetes 08/25/23
cefdinir 300 mg capsule 300 mg PO BID #28 caps 08/28/23
pantoprazole 40 mg tablet,delayed release 40 mg PO DAILY #30 tabs 08/28/23
Home Medication Changes
Pending Results: No
[2023-08-28] MEDS: CLARITIN 10 MG PO (08:34)
[2023-08-28] MEDS: COLACE PO (08:34)
[2023-08-28] MEDS: THERAGRAN 1 TABLET PO (08:34)
[2023-08-28] MEDS: PROTONIX 40 MG PO (08:34)
[2023-08-28] MEDS: MIRALAX PO (08:35)
[2023-08-28] MEDS: MAXIPIME 2000 MG IV (08:35)
[2023-08-28] MEDS: STERILE WATER FOR INJECTION 10 ML IV (08:35)
[2023-08-28] MEDS: PLAQUENIL PO (08:35)
--- NOTE | 2023-08-28 11:32 | CM ---
Patient with Dx Septic shock due to left-sided pyelonephritis.
Spoke with patient who was preparing for d/c. The patient says she feels ready to go home today. Her will provide a ride home.
No CM d/c needs identified.
Plan home today.
== END 2023-08-28 10:29 | disposition home or self-care (01) | DRG 871 ==
LOC: IMU 18:45
PROVIDERS: Nurse Practitioner Family; Physician Assistant; Student in an Organized Health Care Education/Training Program; ADMITTING PHYSICIAN Hospitalist; EMERGENCY PHYSICIAN Emergency Medicine; FAMILY PHYSICIAN Internal Medicine
DX: A41.9 Sepsis, unspecified organism (principal); R65.21 Severe sepsis with septic shock; N10 Acute pyelonephritis; D84.821 Immunodeficiency due to drugs; E87.1 Hypo-osmolality and hyponatremia; M06.9 Rheumatoid arthritis, unspecified; Z79.620 Long term (current) use of immunosuppressive biologic; M79.7 Fibromyalgia
CPT/HCPCS: 74176; 74177; 80048; 80053; 81003; 81015; 81025; 83605; 83735; 85025; 85027; 87040; 87070; 87086; 87502; 93005; 96361; 96374; 96375; 96376; 99285; J1580; Q9967

== ENCOUNTER 2024-05-22 14:24 | Emergency (ER) | payer BC, SELFPAY ==
[2024-05-22 14:35] VITALS: BP 131/88
[2024-05-22 15:06] LABS: % Basophils 0.7 % (0-2); % Eosinophils 1.7 % (0-6); % Immature Granulocytes 0.1 % (0-0.5); % Lymphocytes 35.5 % (20.5-51.1); % Monocytes 6.7 % (1.7-9.3); % Neutrophils 55.3 % (42.2-75.2); Absolute Basophils 0.1 10^3/uL (0-0.2); Absolute Eosinophils 0.1 10^3/uL (0-0.7); Absolute Lymphocytes 2.5 10^3/uL (1.2-3.4); Absolute Monocytes 0.5 10^3/uL (0.1-0.6); Absolute Neutrophils 3.9 10^3/uL (1.4-6.5); Hemoglobin 11.8 g/dL (12.0-16.0); Mean Corp Hgb Conc. 32.8 g/dL (33.0-37.0); Mean Corpuscular Hgb 28.7 pg (27.0-31.0); Mean Corpuscular Volume 87.6 fL (81.0-99.0); Mean Platelet Volume 10.4 fL (7.4-10.4); Nucleated Red Blood Cells % 0 %; Platelet Count 222 10^3/uL (130-400); Red Blood Cell Count 4.11 10^6/uL (4.20-5.40); Red Cell Dist. Width 14.2 % (11.5-14.5)
[2024-05-22 15:08] LABS: Urine Albumin Negative (Neg - Trace); Urine Bilirubin Negative (Negative); Urine Character Clear (Clear); Urine Color Yellow; Urine Glucose Negative (Negative); Urine Ketone Negative (Negative); Urine Leukocyte Negative (Negative); Urine Nitrite Negative (Negative); Urine Occult Blood Negative (Negative); Urine Specific Gravity 1.015 (<1.030); Urine Urobilinogen Negative (Neg - 1+)
[2024-05-22 15:15] LABS: Lactic Acid 1.5 mmol/L (0.7-2.0)
[2024-05-22 15:16] LABS: HCG, Serum Qualitative Screen Negative
[2024-05-22 15:43] LABS: ALT (SGPT) 14 U/L (0-35); AST (SGOT) 22 U/L (14-36); Albumin 4.7 g/dl (3.5-5.0); Alkaline Phosphatase 28 U/L (38-126); Blood Urea Nitrogen 12 mg/dl (7-17); Calcium 9.9 mg/dl (8.4-10.2); Carbon Dioxide 27 mmol/L (22-30); Chloride 99 mmol/L (98-107); Glucose 79 mg/dl (70-99); Potassium 4.2 mmol/L (3.5-5.1); Sodium 136 mmol/L (135-145); Total Bilirubin < 0.1 mg/dl (0.2-1.3); Total Protein 7.2 g/dl (6.3-8.2); eGFR > 60.00
[2024-05-22 16:16] LABS: Lipase 87 U/L (23-300)
[2024-05-22 17:56] VITALS: BP 113/73
--- NOTE | 2024-05-22 20:50 | ED.GENMED ---
History of Present Illness
General
Chief Complaint: Fever
Source: patient
Exam Limitations: none
Time Seen by Provider: 05/22/24 19:34
History of Present Illness
History of Present Illness:
38-year-old female currently being treated with Augmentin for UTI symptoms. However the last 3 days she has had a right deep groin pain. Concerned that she is septic. This has been a previous issue. Low-grade fevers 99+ at home. No vomiting no
flank or back pain. No vaginal discharge or unusual bleeding.
Past History
Past History
ED Past Medical History: Other (Possible rheumatoid arthritis and fibromyalgia)
ED Past Surgical History: Other (Nose surgery, breast reduction)
Social History
Tobacco: Non-smoker
Personal:
Living: with family
Employment: Employed
Family History
Family History: Other (Mother has rheumatoid arthritis)
Review of Systems
Review of Systems
All Other Systems: Not applicable
Constitutional: Denies chills
ABD/GI: Denies vomiting or diarrhea
Phy Exam
Physical Exam
Physical Exam:
GENERAL: Alert and oriented in no apparent distress
EYE: Orbits normal.
NECK: Supple
CARDIAC: Regular rate and rhythm without any obvious murmurs.
LUNGS: Clear breath sounds,normal
ABDOMEN: Soft, no distention. Bowel sounds present. Very minimal tenderness towards the deep right lower pelvic area. No tenderness of McBurney's point. No CVA tenderness
NEUROLOGICAL: Alert and oriented , grossly non-focal
SKIN: Warm and dry, no rash or lesion, no discoloration, skin intact.
MUSCULOSKELETAL: No edema,no deformity.Good color
PSYCH: Normal and appropriate interaction.
Sepsis
Sepsis Screening
Sepsis Assessment: Sepsis Ruled Out
Sepsis Screen
Sepsis Screen: Sepsis Ruled Out
Date: 05/22/24
Time: 21:54
Course
Orders/Labs/Results
Orders:
Orders
05/22/24 14:39
Test Result ONCE
05/22/24 14:43
Complete Blood Count/With Diff Urgent
Comprehensive Metabolic Panel Urgent
HCG, Serum Qualitative Screen Urgent
Lactic Acid Urgent
Lipase Urgent
05/22/24 14:47
Urinalysis Reflex To Culture Urgent
Date Specimen was Collected: 05/22/24
Time Specimen was Collected: 14:39
05/22/24 19:41
CT Abd/Pel (IV only)-DH only Urgent
Comment:
Reason For Exam: Right lower quadrant pain/UTI symptoms
Abnormal Lab Results
05/22/24
14:43
RBC 4.11 L 10^6/uL
(4.20-5.40)
Hgb 11.8 L g/dL
(12.0-16.0)
Hct 36.0 L %
(37.0-47.0)
MCHC 32.8 L g/dL
(33.0-37.0)
Total Bilirubin < 0.1 L mg/dl
(0.2-1.3)
Alkaline Phosphatase 28 L U/L
(38-126)
05/22/24 14:43
05/22/24 14:43
Vital Signs
Initial and Last Documented VS:
Initial Vital Signs
Temp Pulse Resp BP Pulse Ox
98.0 F 96 16 131/88 99
05/22/24 14:35 05/22/24 14:35 05/22/24 14:35 05/22/24 14:35 05/22/24 14:35
Last Documented Vital Signs
Temp Pulse Resp BP Pulse Ox
97.3 F 89 18 99/71 99
05/22/24 21:34 05/22/24 21:34 05/22/24 21:34 05/22/24 21:34 05/22/24 21:34
MDM/Problems Addressed
Differential Diagnosis Includes:
Nothing clinically or by testing to support sepsis or acute infectious issue. However patient has been on antibiotics. Last time this occurred she did have a pyelo by CT scan. Will do CT to evaluate for Pyelo partially treated with oral
antibiotics and for atypical appendicitis or pelvic issue
*Radiology
Radiology exam reviewed: radiology read reviewed (Uterine fibroids. Left ovarian cyst. Mild proctosigmoid colitis)
*Pulse Oximetry
Patient hypoxic: no
*Critical Care Note
Total Time (30-74mins, 75-104mins- exclusive of procedures): Not Applicable
Data Reviewed
Review of Other/Old Records Reveals: Labs, Records, Radiology Studies and Testing
Update Note
Update Note:
Patient medically stable and nontoxic. Patient was concerned about sepsis which clearly has no sepsis issues based on labs clinical findings and radiologic testings. The CT findings are essentially incidental although the proctosigmoid colitis
could be causing comfort. Will add 3 more days of Augmentin for this possibility and follow-up.
ED Attending Note
-
Portions of this chart may have been created with voice recognition software.� Occasional wrong word or��sound alike� substitutions may have occurred due to the inherent limitations of voice recognition software.
Discharge Plan
Departure
Patient Disposition: Home (Routine Discharge)
Date of Disposition: 05/22/24
Time of Disposition: 21:50
Patient with high blood pressure during this ER visit?: No
Discharge Problem:
Right pelvic pain, Mild proctosigmoid colitis, Reflux esophagitis, Uterine fibroids, Left ovarian cyst
Instructions: Ovarian cysts, Uterine Fibroids (DC), Abdominal Pain
Prescriptions:
New
amoxicillin-pot clavulanate 875-125 mg tablet
1 tab PO BID Qty: 6 0RF
No Action
loratadine 10 MG tablet
10 mg PO DAILY
citalopram 40 mg Tablet
40 mg PO HS
therapeutic multivitamin Tablet
1 tab PO DAILY
lidocaine-prilocaine 2.5-2.5 % cream
1 applic topical QID PRN (Reason: tmj pain)
Patient Comments:
08/25/2023: apply to jaw line, back of neck and occipital areas for tmj pain
gabapentin 300 mg capsule
300 mg PO TID PRN (Reason: nerve pain)
hydroxychloroquine 200 mg tablet
200 mg PO BID
Humira(CF) Pen 40 mg/0.4 mL pen injector kit
40 mg SC Q2W
Mounjaro 2.5 mg/0.5 mL pen injector
2.5 mg SC WE
pantoprazole 40 mg Tablet,Delayed Release (Dr/Ec)
40 mg PO DAILY Qty: 30 0RF
cefdinir 300 mg capsule
300 mg PO BID Qty: 28 0RF
Referrals:
NONE,* [Family Provider] -
Zak Duenas, DO [Active] - Follow up in 10 days
Activity Restrictions/Additional Instructions:
Continue the Augmentin for another 3 days
Take a probiotic
Start your medication for your reflux
Follow-up with your SUPPLY CHAIN TECHNICIAN physician for the uterine fibroids and ovarian cyst
Interventions
Interventions:
*Risk Screen - Suicide Last Done: 05/22/24 20:45
*General Assessment Last Done: 05/22/24 20:45
*Neglect/Abuse Screening Last Done: 05/22/24 20:45
*ED COVID-19 Vaccine History Last Done: 05/22/24 20:47
ED- Neurological Assessment Last Done: 05/22/24 20:45
ED-Skin Assessment Last Done: 05/22/24 20:45
Discharge Date and Time
Print Language: AZERBAIJANI
[2024-05-22 21:34] VITALS: BP 99/71
== END 2024-05-22 22:27 | disposition home or self-care (01) ==
LOC: EMR 14:24
PROVIDERS: Emergency Medicine; EMERGENCY PHYSICIAN Emergency Medicine
DX: R10.2 Pelvic and perineal pain (principal); K52.9 Noninfective gastroenteritis and colitis, unspecified; K21.00 Gastro-esophageal reflux disease with esophagitis, without bleeding; D25.9 Leiomyoma of uterus, unspecified; N83.202 Unspecified ovarian cyst, left side
CPT/HCPCS: 99284; 74177; 80053; 81003; 83605; 83690; 84703; 85025; Q9967

== ENCOUNTER 2024-09-21 09:19 | Emergency (ER) | payer BC, SELFPAY ==
[2024-09-21 09:25] VITALS: BP 121/90
[2024-09-21 10:17] LABS: % Basophils 0.4 % (0-2); % Eosinophils 0.5 % (0-6); % Immature Granulocytes 0.4 % (0-0.5); % Lymphocytes 24.5 % (20.5-51.1); % Monocytes 6.6 % (1.7-9.3); % Neutrophils 67.6 % (42.2-75.2); Absolute Basophils 0.1 10^3/uL (0-0.2); Absolute Eosinophils 0.1 10^3/uL (0-0.7); Absolute Immature Granulocytes 0.1 10^3/uL (0-0.05); Absolute Lymphocytes 2.8 10^3/uL (1.2-3.4); Absolute Monocytes 0.8 10^3/uL (0.1-0.6); Absolute Neutrophils 7.6 10^3/uL (1.4-6.5); Hematocrit 40.1 % (37.0-47.0); Mean Corp Hgb Conc. 32.4 g/dL (33.0-37.0); Mean Corpuscular Hgb 27.8 pg (27.0-31.0); Mean Corpuscular Volume 85.9 fL (81.0-99.0); Mean Platelet Volume 9.8 fL (7.4-10.4); Nucleated Red Blood Cells % 0 %; Platelet Count 327 10^3/uL (130-400); Red Blood Cell Count 4.67 10^6/uL (4.20-5.40); Red Cell Dist. Width 14.2 % (11.5-14.5); White Blood Cell Count 11.3 10^3/uL (4.8-10.8)
[2024-09-21 10:51] LABS: HCG, Serum Qualitative Screen Negative
[2024-09-21 10:58] LABS: ALT (SGPT) 15 U/L (0-35); AST (SGOT) 17 U/L (14-36); Albumin 5.5 g/dl (3.5-5.0); Alkaline Phosphatase 30 U/L (38-126); Blood Urea Nitrogen 19 mg/dl (7-17); Calcium 10.5 mg/dl (8.4-10.2); Carbon Dioxide 27 mmol/L (22-30); Chloride 101 mmol/L (98-107); Glucose 108 mg/dl (70-99); Potassium 4.6 mmol/L (3.5-5.1); Sodium 142 mmol/L (135-145); Total Bilirubin 0.4 mg/dl (0.2-1.3); Total Protein 8.4 g/dl (6.3-8.2); eGFR > 60.00
--- NOTE | 2024-09-21 11:06 | ED.GENMED ---
History of Present Illness
General
Chief Complaint: Headache
Source: patient
Exam Limitations: none
Time Seen by Provider: 09/21/24 10:42
Nursing documentation reviewed up to this point in time: agreed with
History of Present Illness
History of Present Illness:
39-year-old female chronic pain syndrome due to arthritis migraine headaches, underwent posterior cervical steroid injection about 2 weeks ago day or 2 later developed headache, similar but different than her migraine lights bother her eyes no fever
initially developed a sore throat with UTI symptoms had a fever couple days ago, no vomiting she has been on amoxicillin, not much relief with her Nurtec for her headache pain is worse with sitting up
Past History
Past History
ED Past Medical History: Other (Possible rheumatoid arthritis and fibromyalgia)
ED Past Surgical History: Other (Nose surgery, breast reduction)
Social History
Tobacco: Non-smoker
Personal:
Living: with family
Employment: Employed
Family History
Family History: Other (Mother has rheumatoid arthritis)
Review of Systems
Review of Systems
All Other Systems: Not applicable
Constitutional: Reports fever
EENT: Reports sore throat
Respiratory: Denies cough or trouble breathing
Cardiac: Denies chest pain
ABD/GI: Reports nausea
: Reports dysuria and flank pain
Musculoskeletal: Reports no symptoms
Neurological: Reports headache
Hematologic/Lymphatic: Reports no symptoms
Psychiatric: Reports no symptoms
Phy Exam
Physical Exam
Physical Exam:
Physical Exam
General: Nontoxic 39-year
Neck: Posterior pharynx is clear no pain with flexion of the neck
Heart: s1/s2 regular rate and rhythm, no murmur. equal radial pulses.
Lungs: no acute respiratory distress. clear bilaterally
Abdomen: Soft nontender mild bilateral flank tenderness
Neuro: alert and oriented. no focal neurological deficits
Skin: no rash
Psychiatric: well kept. interactive and cooperative
Extremities: no edema.
Course
Orders/Labs/Results
Orders:
Orders
09/21/24 09:59
Test Result ONCE
09/21/24 10:03
Complete Blood Count/With Diff Urgent
09/21/24 10:07
Comprehensive Metabolic Panel Urgent
HCG, Serum Qualitative Screen Urgent
Comment: Notify provider if positive test present
09/21/24 11:01
0.9% Sodium Chloride 1000 ml [Nss] 1,000 ml IV BOLUS
Ketorolac [Toradol] 30 mg IV NOW STA
Promethazine [Phenergan] 25 mg 0.9% Sodium Chloride 50 ml [Nss] 50 ml IV NOW
09/21/24 11:03
Caffeine Citrate [Caffeine Citrate Oral Solution] 300 mg PO NOW STA
09/21/24 11:07
Prochlorperazine [Compazine] 10 mg IV NOW STA
09/21/24 11:11
CT Head W/o Iv Contrast Urgent
Comment:
Reason For Exam: Worsening headache
09/21/24 11:20
Urinalysis Reflex To Culture Urgent
Date Specimen was Collected: 09/21/24
Time Specimen was Collected: 11:09
Butalb/Acetaminophen/Caffeine [Fioricet] 2 tab PO NOW STA
Abnormal Lab Results
09/21/24 09/21/24
10:03 10:07
WBC 11.3 H 10^3/uL
(4.8-10.8)
MCHC 32.4 L g/dL
(33.0-37.0)
Abs Immat Gran (auto) 0.1 H 10^3/uL
(0-0.05)
Absolute Neuts (auto) 7.6 H 10^3/uL
(1.4-6.5)
Absolute Monos (auto) 0.8 H 10^3/uL
(0.1-0.6)
BUN 19 H mg/dl
(7-17)
Glucose 108 H mg/dl
(70-99)
Calcium 10.5 H mg/dl
(8.4-10.2)
Alkaline Phosphatase 30 L U/L
(38-126)
Total Protein 8.4 H g/dl
(6.3-8.2)
Albumin 5.5 H g/dl
(3.5-5.0)
09/21/24 10:03
09/21/24 10:07
Vital Signs
Initial and Last Documented VS:
Initial Vital Signs
Temp Pulse Resp BP Pulse Ox
97.7 F 102 16 121/90 98
09/21/24 09:25 09/21/24 09:25 09/21/24 09:25 09/21/24 09:25 09/21/24 09:25
Last Documented Vital Signs
Temp Pulse Resp BP Pulse Ox
97.7 F 102 16 106/78 100
09/21/24 09:25 09/21/24 09:25 09/21/24 09:25 09/21/24 12:00 09/21/24 12:15
MDM/Problems Addressed
Differential Diagnosis Includes:
Migraine, postdural puncture headache, dehydration, symptoms related to strep, symptoms related UTI doubt ER MANAGER infection or subarachnoid hemorrhage
MDM/Problems Addressed:
Headache
*Critical Care Note
Total Time (30-74mins, 75-104mins- exclusive of procedures): Not Applicable
Update Note
Update Note:
1245 update
Patient resting comfortably, she has an MRI scheduled for later today
ED Attending Note
-
Portions of this chart may have been created with voice recognition software.� Occasional wrong word or��sound alike� substitutions may have occurred due to the inherent limitations of voice recognition software.
Discharge Plan
Departure
Patient Disposition: Home (Routine Discharge)
Date of Disposition: 09/21/24
Time of Disposition: 12:53
Patient with high blood pressure during this ER visit?: No
Condition: Good
Discharge Problem:
Headache
Instructions: Headache, Adult (DC)
Prescriptions:
No Action
loratadine 10 MG tablet
10 mg PO DAILY
citalopram 40 mg Tablet
40 mg PO HS
therapeutic multivitamin Tablet
1 tab PO DAILY
lidocaine-prilocaine 2.5-2.5 % cream
1 applic topical QID PRN (Reason: tmj pain)
Patient Comments:
08/25/2023: apply to jaw line, back of neck and occipital areas for tmj pain
gabapentin 300 mg capsule
300 mg PO TID PRN (Reason: nerve pain)
hydroxychloroquine 200 mg tablet
200 mg PO BID
Humira(CF) Pen 40 mg/0.4 mL pen injector kit
40 mg SC Q2W
Mounjaro 2.5 mg/0.5 mL pen injector
2.5 mg SC WE
pantoprazole 40 mg Tablet,Delayed Release (Dr/Ec)
40 mg PO DAILY Qty: 30 0RF
cefdinir 300 mg capsule
300 mg PO BID Qty: 28 0RF
amoxicillin-pot clavulanate 875-125 mg tablet
1 tab PO BID Qty: 6 0RF
Referrals:
Marlene Sanchez, DO [Family Provider] - Next open appointment
Activity Restrictions/Additional Instructions:
Drink plenty of fluids, follow-up with your finish painter and primary care provider
Interventions
Interventions:
*Risk Screen - Suicide Last Done: 09/21/24 09:25
*General Assessment Last Done: 09/21/24 11:05
*Neglect/Abuse Screening Last Done: 09/21/24 11:05
*ED- Fall Risk Assessment Last Done: 09/21/24 11:05
*ED COVID-19 Vaccine History Last Done: 09/21/24 11:05
ED- Neurological Assessment Last Done: 09/21/24 11:05
Discharge Date and Time
Print Language: GUAMANIAN
[2024-09-21] MEDS: NSS 1000 IV (11:21)
[2024-09-21] MEDS: COMPAZINE 10 MG IV (11:21)
[2024-09-21] MEDS: TORADOL 30 MG IV (11:21)
[2024-09-21 11:22] VITALS: BMI 16.3
[2024-09-21] MEDS: FIORICET 2 TAB PO (11:29)
[2024-09-21 11:31] LABS: Urine Albumin Negative (Neg - Trace); Urine Bilirubin Negative (Negative); Urine Character Clear (Clear); Urine Color Yellow; Urine Glucose Negative (Negative); Urine Ketone Negative (Negative); Urine Leukocyte Negative (Negative); Urine Nitrite Negative (Negative); Urine Occult Blood Negative (Negative); Urine Urobilinogen Negative (Neg - 1+); Urine pH 6.5 (5.0-9.0)
[2024-09-21 11:36] VITALS: BP 112/82
[2024-09-21 12:00] VITALS: BP 106/78
[2024-09-21 13:01] VITALS: BP 89/57
== END 2024-09-21 13:11 | disposition home or self-care (01) ==
LOC: EMR 09:19
PROVIDERS: Emergency Medicine; EMERGENCY PHYSICIAN Emergency Medicine; FAMILY PHYSICIAN Internal Medicine
DX: R51.9 Headache, unspecified (principal)
CPT/HCPCS: 99284; 96374; 96375; 96361; 70450; 80053; 81003; 84703; 85025

== ENCOUNTER → 2024-09-25 14:05 | Outpatient (REF) | payer BC, SELFPAY | LOC: PAVMRI 14:05 | PROVIDERS: ATTENDING PHYSICIAN Internal Medicine Rheumatology | DX: M35.01 Sjogren syndrome with keratoconjunctivitis (principal); H20.9 Unspecified iridocyclitis; K11.20 Sialoadenitis, unspecified | CPT/HCPCS: 72156; 72158; A9575 ==

== ENCOUNTER 2025-04-12 08:24 | Emergency (ER) | payer BC, SELFPAY ==
[2025-04-12 08:31] VITALS: BP 110/61
--- NOTE | 2025-04-12 09:43 | ED.GENMED ---
History of Present Illness
General
Chief Complaint: Abdominal Pain
Time Seen by Provider: 04/12/25 09:30
History of Present Illness
History of Present Illness:
39 yo female w/ hx of RA and Sjogren's presents to the Emergency Department for evaluation of abd pain x 5 days. Pain is constant but worsens immediately post prandial, without associated vomiting or diarrhea. Underwent EGD by GI at [facility] last
month and diagnosed w/ peptic ulcers, currently on BID pantoprazole. She notes that she takes NSAIDs daily due to RA pain, has not discontinued this practice despite the PUD diagnosis as was advised not to by GI. Denies melena. No fevers, chills or
weight loss. No prior abd surgeries
Past History
Past History
ED Past Medical History: Other (Possible rheumatoid arthritis and fibromyalgia)
ED Past Surgical History: Other (Nose surgery, breast reduction)
Social History
Tobacco: Non-smoker
Personal:
Living: with family
Employment: Employed
Family History
Family History: Other (Mother has rheumatoid arthritis)
Review of Systems
Review of Systems
Allergies reviewed?: Yes
All Other Systems: ROS reviewed and negative except as documented in HPI and ROS
Phy Exam
Physical Exam
Physical Exam:
GEN: Well appearing, NAD, WDWN
HEENT: Oral mucosa moist, no scleral icterus
Cardiac: Regular rate and rhythm
Lung: No respiratory distress, no tachypnea
Abdomen: Soft, mild epigastric tenderness, no rigidity or peritoneal signs, negative Youngblood
MSK: No gross deformity or injuries
Skin: Good color, no pallor or jaundice, no rashes
Neuro: AO x3, moves all extremities freely
Psych: Calm, cooperative
Course
Orders/Labs/Results
Orders:
Orders
04/12/25 09:42
Complete Blood Count/With Diff Urgent
Comprehensive Metabolic Panel Urgent
HCG, Serum Qualitative Screen Urgent
Lipase Urgent
Test Result ONCE
US Abdomen Complete/Upper Urgent
Comment:
Reason For Exam: upper abd pain
Abnormal Lab Results
04/12/25
09:42
RBC 3.71 L 10^6/uL
(4.20-5.40)
Hgb 10.0 L g/dL
(12.0-16.0)
Hct 32.7 L %
(37.0-47.0)
MCHC 30.6 L g/dL
(33.0-37.0)
Sodium 134 L mmol/L
(135-145)
Alkaline Phosphatase 31 L U/L
(38-126)
04/12/25 09:42
04/12/25 09:42
Vital Signs
Initial and Last Documented VS:
Initial Vital Signs
Temp Pulse Resp BP Pulse Ox
98.5 F 72 18 110/61 97
04/12/25 08:31 04/12/25 08:31 04/12/25 08:31 04/12/25 08:31 04/12/25 08:31
Last Documented Vital Signs
Temp Pulse Resp BP Pulse Ox
98.5 F 67 16 115/74 98
04/12/25 08:31 04/12/25 11:17 04/12/25 11:17 04/12/25 11:17 04/12/25 11:17
MDM/Problems Addressed
MDM/Problems Addressed:
Patient's pain is most likely due to persistent ulcer disease given that she cannot stop taking NSAIDs for diagnosis. She has unremarkable ultrasound and recently benign abdominal exam otherwise. Do not have any concerns for acute surgical
pathology. Will switch her from ibuprofen to Celebrex as it sounds, without NSAIDs FOR severe RA like to avoid this. Recommend she follow-up with her GI doc for further recommendations. Could consider possibility SMA syndrome but patient has no
weight loss and significant fear of eating close this symptomology is ongoing going on for 5 days, favor this to be less likely but recommend she consider CT angiograms outpatient if symptoms not improving with Regimen
*Pulse Oximetry
SaO2: 97
Oxygen Mode of Delivery: Room air
Patient hypoxic: no
*Critical Care Note
Total Time (30-74mins, 75-104mins- exclusive of procedures): Not Applicable
ED Attending Note
-
Portions of this chart may have been created with voice recognition software.� Occasional wrong word or��sound alike� substitutions may have occurred due to the inherent limitations of voice recognition software.
Discharge Plan
Departure
Patient Disposition: Home (Routine Discharge)
Date of Disposition: 04/12/25
Time of Disposition: 11:08
Patient with high blood pressure during this ER visit?: No
Discharge Problem:
Peptic ulcer disease
Instructions: Peptic ulcer - ED (DC)
Prescriptions:
New
celecoxib [Celebrex] 200 mg capsule
200 mg PO BID Qty: 20 0RF
sucralfate [Carafate] 1 gram tablet
1 g PO AC Qty: 60 0RF
No Action
loratadine 10 MG tablet
10 mg PO DAILY
citalopram 40 mg Tablet
40 mg PO HS
therapeutic multivitamin Tablet
1 tab PO DAILY
lidocaine-prilocaine 2.5-2.5 % cream
1 applic topical QID PRN (Reason: tmj pain)
Patient Comments:
08/25/2023: apply to jaw line, back of neck and occipital areas for tmj pain
gabapentin 300 mg capsule
300 mg PO TID PRN (Reason: nerve pain)
hydroxychloroquine 200 mg tablet
200 mg PO BID
Humira(CF) Pen 40 mg/0.4 mL pen injector kit
40 mg SC Q2W
Mounjaro 2.5 mg/0.5 mL pen injector
2.5 mg SC WE
pantoprazole 40 mg Tablet,Delayed Release (Dr/Ec)
40 mg PO DAILY Qty: 30 0RF
cefdinir 300 mg capsule
300 mg PO BID Qty: 28 0RF
amoxicillin-pot clavulanate 875-125 mg tablet
1 tab PO BID Qty: 6 0RF
[id number]-ttku [Fioricet] 50-300-40 mg capsule
1 cap PO Q4H PRN (Reason: Pain) Qty: 14 0RF
Referrals:
Marlene Sanchez, DO [Family Provider, Internal Medicine]
Activity Restrictions/Additional Instructions:
Stop the ibuprofen in favor of Celebrex. Use the Carafate before meals
To help with your GI doctor if not improving in 7 to 10 days and you likely need further abdominal imaging
Interventions
Interventions:
*Risk Screen - Suicide Last Done: 04/12/25 08:31
*General Assessment Last Done: 04/12/25 08:31
*Neglect/Abuse Screening Last Done: 04/12/25 08:31
*ED- Fall Risk Assessment Last Done: 04/12/25 09:49
*ED COVID-19 Vaccine History Last Done: 04/12/25 09:49
*ED Influenza Vaccine History Last Done: 04/12/25 09:49
*Nursing Disposition Last Done: 04/12/25 11:17
TT-Ntzioo-Xmsxhbaatq Assessment Last Done: 04/12/25 09:49
Discharge Date and Time
Discharge Date/Time: 04/12/25 11:23
Print Language: JAPANESE
[2025-04-12 09:51] LABS: Hematocrit 32.7 % (37.0-47.0); Hemoglobin 10.0 g/dL (12.0-16.0); Mean Corp Hgb Conc. 30.6 g/dL (33.0-37.0); Mean Corpuscular Volume 88.1 fL (81.0-99.0); Nucleated Red Blood Cells % 0 %; Platelet Count 183 10^3/uL (130-400); Red Cell Dist. Width 13.7 % (11.5-14.5)
[2025-04-12 10:15] LABS: ALT (SGPT) 11 U/L (0-35); AST (SGOT) 17 U/L (14-36); Albumin 4.4 g/dl (3.5-5.0); Alkaline Phosphatase 31 U/L (38-126); Blood Urea Nitrogen 7 mg/dl (7-17); Calcium 9.3 mg/dl (8.4-10.2); Carbon Dioxide 26 mmol/L (22-30); Chloride 104 mmol/L (98-107); Glucose 84 mg/dl (70-99); Lipase 65 U/L (23-300); Potassium 4.3 mmol/L (3.5-5.1); Sodium 134 mmol/L (135-145); Total Protein 7.0 g/dl (6.3-8.2); eGFR > 60.00
[2025-04-12 10:33] LABS: HCG, Serum Qualitative Screen Negative
[2025-04-12 11:17] VITALS: BP 115/74
== END 2025-04-12 11:23 | disposition home or self-care (01) ==
LOC: EMR 08:24
PROVIDERS: Physician Assistant; EMERGENCY PHYSICIAN Student in an Organized Health Care Education/Training Program; FAMILY PHYSICIAN Internal Medicine
DX: K27.9 Peptic ulcer, site unspecified, unspecified as acute or chronic, without hemorrhage or perforation (principal); M06.9 Rheumatoid arthritis, unspecified; M35.00 Sjogren syndrome, unspecified; Z82.61 Family history of arthritis
CPT/HCPCS: 99284; 76700; 80053; 83690; 84703; 85025